=== PATIENT | male | born 1960 | race Hispanic/Latino ===

== ENCOUNTER → 2020-09-24 | Outpatient (CLI) | payer OTHER | END | disposition home or self-care (01) | LOC: RAH 08:34 | PROVIDERS: ATTEND Internal Medicine | DX: I08.8 Other rheumatic multiple valve diseases (principal); I10 Essential (primary) hypertension; E66.9 Obesity, unspecified; E78.5 Hyperlipidemia, unspecified; E11.9 Type 2 diabetes mellitus without complications; R55 Syncope and collapse | CPT/HCPCS: 93306; 93356 ==

== ENCOUNTER → 2020-10-08 | Outpatient (CLI) | payer OTHER ==
[~2020-10-08] MED LIST: REGADENOSON 0.4 MG/5 ML PF SYG IVP SCH
== END | disposition home or self-care (01) ==
LOC: RAH 10:06
PROVIDERS: ATTEND Internal Medicine
DX: R07.9 Chest pain, unspecified (principal)
CPT/HCPCS: 78452; 93017; 96374; A9500 ×2; J2785

== ENCOUNTER → 2020-10-31 | Outpatient (CLI) | payer OTHER | END | disposition home or self-care (01) | LOC: RAH 08:58 | PROVIDERS: ATTEND Internal Medicine Gastroenterology | DX: R10.13 Epigastric pain (principal); K21.9 Gastro-esophageal reflux disease without esophagitis; Z90.3 Acquired absence of stomach [part of] | CPT/HCPCS: 74240 ==

== ENCOUNTER 2021-02-26 06:44 | Day surgery (SDC) | payer OTHER ==
[2021-02-23 12:45] LABS: BASOPHILS % (AUTO) 0.7 % (0.0-5.0); EOSINOPHILS % (AUTO) 3.1 % (0.0-8.0); LYMPHOCYTES % (AUTO) 21.5 % (21.0-51.0); MEAN CORPUSCULAR HEMOGLOBIN 24.3 pg (27.0-33.0); MEAN CORPUSCULAR HGB CONC 30.4 g/dL (32.0-36.0); MEAN CORPUSCULAR VOLUME 79.9 fL (79-99); MONOCYTES % (AUTO) 7.7 % (3.0-13.0); NEUTROPHILS % (AUTO) 66.2 % (40.0-77.0); PLATELET COUNT (AUTO) 393 K/uL (130-400); RED BLOOD CELL COUNT(AUTO) 5.76 MIL/uL (4.50-6.20); RED CELL DISTRIBUTION WIDTH 16.4 % (11.0-15.5); WHITE BLOOD COUNT (AUTO) 10.8 K/uL (4.8-10.8)
[2021-02-23 13:21] LABS: CREATININE 0.8 mg/dL (0.5-1.5); POTASSIUM 4.7 mmol/L (3.5-5.1)
[~2021-02-26] VITALS: Ht 185.4 cm; Wt 58.6 kg
[2021-02-26] VITALS (15 sets, daily range): BP systolic 112–142; BP diastolic 48–69
[~2021-02-26 06:44] MED LIST changes: +AMLO2.5T4 PO; +ASPI-449 PO; +FENO134C PO; +GLIP5TAB11 PO; +KRIL1CAP20 PO; +LISI40TA9 PO; +METF-446 PO; +MULT-1367 PO; +PRAV20TA4 PO; -REGADENOSON 0.4 MG/5 ML PF SYG IVP SCH; +SEMA1PEN3 SQ; +[UNRECOGNIZED DRUG - CODE] PO
[2021-02-26] MEDS ORDERED: 0.9%NACL 1000ML 1,000 ML IV ONE (08:18)
[2021-02-26] MEDS ORDERED: CEFAZOLIN SODIUM 1 GM VIAL ONE (08:18)
[2021-02-26] MEDS ORDERED: SUCCINYLCHOLINE 200MG/10ML SYR ONE (10:33)
[2021-02-26] MEDS ORDERED: LIDOCAINE HCL MPF 1% 5ML VIAL ONE (10:33)
[2021-02-26] MEDS ORDERED: FENTANYL CITRATE PF 50 MCG/1 ML 2ML VIAL ONE ×2 (10:34→12:04)
[2021-02-26] MEDS ORDERED: ROCURONIUM 10MG/1ML SYR 10 MG/ML ML ONE (10:34)
[2021-02-26] MEDS ORDERED: PROPOFOL 10 MG/ML 20ML VIAL IV ONE (10:34)
[2021-02-26] MEDS ORDERED: MIDAZOLAM HCL 1 MG/ML 2ML VIAL ONE (10:34)
[2021-02-26] MEDS ORDERED: CEPH500B PO (12:54)
[2021-02-26] MEDS ORDERED: IBUP-2077 PO (12:54)
[2021-02-26] MEDS ORDERED: ACET1TAB25 PO (12:54)
[2021-02-26] MEDS ORDERED: MEPERIDINE-PF 25 MG/ML SYG ONE (13:17)
[2021-02-26] MEDS ORDERED: KETOROLAC 30MG VIAL (30MG/ML) ONE (13:28)
== END 2021-02-26 14:35 | disposition home or self-care (01) ==
LOC: DAH 06:44
PROVIDERS: ATTEND Orthopaedic Surgery
DX: M23.352 Other meniscus derangements, posterior horn of lateral meniscus, left knee (principal); Z20.822 Contact with and (suspected) exposure to COVID-19; M17.12 Unilateral primary osteoarthritis, left knee; M22.42 Chondromalacia patellae, left knee; M23.611 Other spontaneous disruption of anterior cruciate ligament of right knee; I10 Essential (primary) hypertension; E11.9 Type 2 diabetes mellitus without complications; M06.9 Rheumatoid arthritis, unspecified; Z98.890 Other specified postprocedural states; Z98.84 Bariatric surgery status; Z82.49 Family history of ischemic heart disease and other diseases of the circulatory system; Z83.3 Family history of diabetes mellitus; Z82.61 Family history of arthritis; Z87.891 Personal history of nicotine dependence; Z72.89 Other problems related to lifestyle; Z79.899 Other long term (current) drug therapy
CPT/HCPCS: 29880; 36415; 80048; 82948 ×2; 85025; 87635; A4215; A4221; A4222; A4223; A4649; A4663; A4930; A6223; C9803; J0330; J0690; J1885; J2175; J2250; J2704; J3010 ×2; J3490; J7030

== ENCOUNTER 2021-10-01 07:43 | Observation (INO) | payer OTHER ==
[2021-09-29 09:49] LABS: BASOPHILS % (AUTO) 0.8 % (0.0-5.0); EOSINOPHILS % (AUTO) 4.5 % (0.0-8.0); HEMATOCRIT 48.1 % (42-54); LYMPHOCYTES % (AUTO) 24.1 % (21.0-51.0); MEAN CORPUSCULAR HGB CONC 31.2 g/dL (32.0-36.0); MEAN CORPUSCULAR VOLUME 83.4 fL (79-99); MONOCYTES % (AUTO) 8.1 % (3.0-13.0); NEUTROPHILS % (AUTO) 61.6 % (40.0-77.0); PLATELET COUNT (AUTO) 307 K/uL (130-400); RED BLOOD CELL COUNT(AUTO) 5.77 MIL/uL (4.50-6.20); RED CELL DISTRIBUTION WIDTH 12.8 % (11.0-15.5)
[2021-09-29 09:51] LABS: APPEARANCE,URINE Clear (CLEAR); BILIRUBIN,URINE Negative (NEGATIVE); COLOR,URINE Dark Yellow (YELLOW); GLUCOSE, URINE (UA) Negative (NEGATIVE); KETONES,URINE Trace mg/dL (NEGATIVE); LEUKOCYTE ESTERASE ,URINE Trace (NEGATIVE); NITRATE,URINE Negative (NEGATIVE); OCCULT BLOOD,URINE Negative (NEGATIVE); PH,URINE 5.5 (5.0-8.0); PROTEIN,URINE Trace mg/dL (NEGATIVE)
[2021-09-29 09:58] LABS: CREATININE 0.9 mg/dL (0.5-1.5)
[2021-09-29 10:02] LABS: INR 1.05 (0.85-1.15); PROTHROMBIN TIME 11.4 SEC (9.6-11.6)
[2021-09-29 10:03] LABS: BACTERIA,URINE Few /HPF (None Seen); RBC,URINE None Seen /HPF (0-1); WBC,URINE 0-1 /HPF (0-1)
[2021-09-29 15:09] VITALS: BP 155/73
[~2021-10-01] VITALS: Ht 185.4 cm; Wt 125.3 kg
[2021-10-01] VITALS (26 sets, daily range): BP systolic 127–181; BP diastolic 58–94
[~2021-10-01 07:43] MED LIST changes: -AMLO2.5T4 PO; -FENO134C PO; +FENO134C21 PO; +NAPR-1023 PO; -[UNRECOGNIZED DRUG - CODE] PO
[2021-10-01] MEDS ORDERED: 0.9%NACL 1000ML 1,000 ML IV ONE (08:20)
[2021-10-01] MEDS ORDERED: CEFAZOLIN SODIUM 1 GM VIAL ONE ×4 (10:26→11:09)
[2021-10-01] MEDS ORDERED: TRANEXAMIC ACID 1000MG/10ML ONE ×2 (10:32→14:02)
[2021-10-01] MEDS ORDERED: ROPIVACAINE 0.5% 5MG/ML 30ML IJ ONE ×2 (10:34→10:35)
[2021-10-01] MEDS ORDERED: CELECOXIB 200 MG CAP ONE (10:35)
[2021-10-01] MEDS ORDERED: ACETAMINOPHEN 500 MG TABLET ONE (10:35)
[2021-10-01] MEDS ORDERED: KETOROLAC 15MG/ML VIAL (15MG/ML) ONE (10:35)
[2021-10-01] MEDS ORDERED: 0.9%NACL 10ML VIAL ONE (10:35)
[2021-10-01] MEDS ORDERED: PROPOFOL 10 MG/ML 20ML VIAL IV ONE (10:38)
[2021-10-01] MEDS ORDERED: MIDAZOLAM HCL 1 MG/ML 2ML VIAL ONE (10:38)
[2021-10-01] MEDS ORDERED: FENTANYL CITRATE PF 50 MCG/1 ML 2ML VIAL ONE ×5 (10:38→14:19)
[2021-10-01] MEDS ORDERED: ROCURONIUM 10MG/1ML SYR 10 MG/ML ML ONE ×2 (10:38→11:39)
[2021-10-01] MEDS ORDERED: SUCCINYLCHOLINE CHLORIDE 20 MG/ML 10 ML VIAL ONE (10:38)
[2021-10-01] MEDS ORDERED: LIDOCAINE PF 100MG/5ML (2%) SYRINGE 5ML ONE (10:38)
[2021-10-01] MEDS ORDERED: GLYCOPYRROLATE 1 MG/5 ML SYRINGE ONE (11:23)
[2021-10-01] MEDS ORDERED: CEFAZOLIN SODIUM 3 GM VIAL IV ONE (11:35)
[2021-10-01] MEDS ORDERED: TRANEXAMIC ACID 1000MG/10ML IV ONE (11:38)
[2021-10-01] MEDS ORDERED: EPHEDRINE SULFATE 50 MG/ML AMPULE ONE (12:41)
[2021-10-01] MEDS ORDERED: LIDOCAINE HCL-MPF 1% 2ML VIAL IV PRN (14:00)
[2021-10-01] MEDS ORDERED: POTASSIUM CHLORIDE 20MEQ/100ML 100 ML IV PRN (14:00)
[2021-10-01] MEDS ORDERED: POTASSIUM CHLORIDE 10% ELIXIR 20 MEQ/15 ML UDCUP PO PRN (14:00)
[2021-10-01] MEDS ORDERED: ONDANSETRON 4MG INJ IVP PRN (14:00)
[2021-10-01] MEDS ORDERED: OXYCODONE HCL 5 MG TAB PO PRN (14:00)
[2021-10-01] MEDS ORDERED: DiphenhydrAMINE HCL 50 MG/ML VIAL IVP PRN (14:00)
[2021-10-01] MEDS ORDERED: KCL 20 MEQ ERTAB PO PRN (14:00)
[2021-10-01] MEDS ORDERED: CALCIUM CARB 500MG PO PRN (14:00)
[2021-10-01] MEDS ORDERED: FERROUS FUMARATE 324 MG TABLET PO PRN (14:00)
[2021-10-01] MEDS: ACETAMINOPHEN 500 MG TABLET PO SCH ×2 (14:00→20:34)
[2021-10-01] MEDS ORDERED: TRAMADOL HCL 50 MG TABLET PO PRN (14:00)
[2021-10-01] MEDS ORDERED: TEMAZEPAM 15 MG CAPSULE PO PRN (14:00)
[2021-10-01] MEDS ORDERED: KETOROLAC 15MG/ML VIAL (15MG/ML) IV PRN (14:00)
[2021-10-01] MEDS: 0.9%NACL 1000ML 1,000 ML IV SCH ×2 (14:08→23:10)
[2021-10-01] MEDS: INSULIN HUMULIN R 100 UNIT/ML 3ML SQ SCH ×2 (17:00→20:34)
[2021-10-01] MEDS: METFORMIN HCL 500 MG TABLET PO SCH (17:10)
[2021-10-01] MEDS: CEFAZOLIN SODIUM 3 GM in DEXTROSE 5%-WATER 100 ML IVP SCH (18:37)
[2021-10-01] MEDS ORDERED: COMPOUND IV REFRIGERATED 1 EACH IVSOLN MISC PRN (19:00)
[2021-10-01] MEDS: GLIPIZIDE 5 MG TABLET PO SCH (20:33)
[2021-10-01] MEDS: FAMOTIDINE 20MG TAB PO SCH (20:33)
[2021-10-01] MEDS: LISINOPRIL 40 MG TABLET PO SCH (20:33)
[2021-10-01] MEDS: ASPIRIN 81 MG EC TAB PO SCH (20:33)
[2021-10-01] MEDS: CELECOXIB 200 MG CAP PO SCH (20:33)
[2021-10-01] MEDS: PREGABALIN 25 MG CAP PO SCH (20:33)
[2021-10-01] MEDS: OXYCODONE HCL 5 MG TAB PO PRN (22:30)
[2021-10-02 00:04] VITALS: BP 129/70
[2021-10-02] MEDS: CEFAZOLIN SODIUM 3 GM in DEXTROSE 5%-WATER 100 ML IVP SCH (01:59)
[2021-10-02 04:04] VITALS: BP 138/75
[2021-10-02] MEDS: ACETAMINOPHEN 500 MG TABLET PO SCH ×2 (04:41→14:27)
[2021-10-02 04:43] LABS: HEMATOCRIT 39.4 % (42-54); MEAN CORPUSCULAR HEMOGLOBIN 27.2 pg (27.0-33.0); MEAN CORPUSCULAR HGB CONC 32.2 g/dL (32.0-36.0); MEAN CORPUSCULAR VOLUME 84.4 fL (79-99); RED BLOOD CELL COUNT(AUTO) 4.67 MIL/uL (4.50-6.20); RED CELL DISTRIBUTION WIDTH 13.1 % (11.0-15.5); WHITE BLOOD COUNT (AUTO) 10.8 K/uL (4.8-10.8)
[2021-10-02 04:54] LABS: CREATININE 0.8 mg/dL (0.5-1.5); POTASSIUM 3.7 mmol/L (3.5-5.1)
[2021-10-02] MEDS: INSULIN HUMULIN R 100 UNIT/ML 3ML SQ SCH ×3 (06:02→16:58)
[2021-10-02 07:26] VITALS: BP 136/65
[2021-10-02] MEDS: METFORMIN HCL 500 MG TABLET PO SCH ×2 (08:00→16:42)
[2021-10-02] MEDS ORDERED: POLYETHYLENE GLYCOL 3350 17 GM POWD.PACK PO SCH (09:00)
[2021-10-02] MEDS ORDERED: FENOFIBRATE MICRONIZED 134 MG PO SCH (09:00)
[2021-10-02] MEDS ORDERED: ATORVASTATIN 10 MG TABLET PO SCH (09:00)
[2021-10-02] MEDS ORDERED: TAMSULOSIN HCL 0.4 MG CAP.ER.24H PO SCH (09:00)
[2021-10-02] MEDS: CELECOXIB 200 MG CAP PO SCH (09:54)
[2021-10-02] MEDS: PREGABALIN 25 MG CAP PO SCH (09:54)
[2021-10-02] MEDS: ASPIRIN 81 MG EC TAB PO SCH (09:54)
[2021-10-02] MEDS: GLIPIZIDE 5 MG TABLET PO SCH (09:55)
[2021-10-02] MEDS: LISINOPRIL 40 MG TABLET PO SCH (09:56)
[2021-10-02] MEDS: FAMOTIDINE 20MG TAB PO SCH (09:57)
[2021-10-02] MEDS: 0.9%NACL 1000ML 1,000 ML IV SCH (10:00)
[2021-10-02 11:24] VITALS: BP 158/82
[2021-10-02 16:12] VITALS: BP 154/92
[2021-10-02] MEDS: OXYCODONE HCL 5 MG TAB PO PRN (16:44)
[2021-10-02] MEDS ORDERED: HYDR-4060 PO (17:30)
[2021-10-02] MEDS ORDERED: AEC81 PO (17:30)
[2021-10-04] MEDS ORDERED: SEMAGLUTIDE 0.5 MG SQ SCH (09:00)
[2021-10-04] MEDS ORDERED: BISACODYL 10 MG SUPP.RECT RC PRN (14:00)
== END 2021-10-02 18:50 | disposition home health service (06) ==
LOC: DAH 07:43 → DAHIP 07:44 → DAH 07:44 → 4AH 15:30
PROVIDERS: ADMIT Orthopaedic Surgery; ATTEND Orthopaedic Surgery
DX: M17.12 Unilateral primary osteoarthritis, left knee (principal); Z20.822 Contact with and (suspected) exposure to COVID-19; G89.29 Other chronic pain; M25.562 Pain in left knee; I10 Essential (primary) hypertension; E11.9 Type 2 diabetes mellitus without complications; Z79.899 Other long term (current) drug therapy; Z98.890 Other specified postprocedural states; Z79.82 Long term (current) use of aspirin; Z79.84 Long term (current) use of oral hypoglycemic drugs; Z79.4 Long term (current) use of insulin
CPT/HCPCS: 27447; 36415 ×2; 64447; 76942; 80048 ×2; 81001; 82948 ×6; 85025; 85027; 85610; 87088; 87635; 87641; 96365; 96372 ×2; 96375; 96376; 97039 ×2; 97116 ×2; 97161; 97530 ×2; A4215; A4221; A4222; A4223; A4600; A4649 ×5; A4663; A9272; C1776; C9803; G0378 ×26; J0330; J0690 ×6; J1815 ×2; J1885 ×2; J2001; J2250; J2704; J2795 ×2; J3010 ×5; J3490 ×5; J7030; J7060; J7120

== ENCOUNTER 2024-01-22 03:27 | Emergency (ER) | payer OTHER ==
[~2024-01-22] VITALS: Ht 188 cm; Wt 122.0 kg
[~2024-01-22 03:27] MED LIST changes: +AEC81 PO; -ASPI-449 PO; -GLIP5TAB11 PO; +GLIP5TAB15 PO; +HYDR-4060 PO; -NAPR-1023 PO
[2024-01-22 03:43] LABS: BASOPHILS # (AUTO) 0.09 K/uL (0.00-0.20); BASOPHILS % (AUTO) 0.5 % (0.0-5.0); EOSINOPHILS # (AUTO) 0.31 K/uL (0.00-0.70); EOSINOPHILS % (AUTO) 1.7 % (0.0-8.0); HEMATOCRIT 45.3 % (42-54); IMMATURE GRANULOCYTE ABSOLUTE 0.16 K/uL (0-1); LYMPHOCYTES # (AUTO) 2.7 K/uL (1.0-4.8); LYMPHOCYTES % (AUTO) 14.5 % (21.0-51.0); MEAN CORPUSCULAR HEMOGLOBIN 27.7 pg (27.0-33.0); MEAN CORPUSCULAR HGB CONC 33.1 g/dL (32.0-36.0); MEAN CORPUSCULAR VOLUME 83.7 fL (79-99); MONOCYTES # (AUTO) 0.9 K/uL (0.1-1.0); NEUTROPHILS # (AUTO) 14.4 K/uL (1.8-7.7); NEUTROPHILS % (AUTO) 77.4 % (40.0-77.0); PLATELET COUNT (AUTO) 294 K/uL (130-400); RED BLOOD CELL COUNT(AUTO) 5.41 MIL/uL (4.50-6.20); RED CELL DISTRIBUTION WIDTH 12.9 % (11.0-15.5); WHITE BLOOD COUNT (AUTO) 18.6 K/uL (4.8-10.8)
[2024-01-22] MEDS: ONDANSETRON 4MG INJ IVP ONE (03:51)
[2024-01-22 03:53] LABS: CREATININE 0.9 mg/dL (0.5-1.3); POTASSIUM 3.9 mmol/L (3.5-5.1)
[2024-01-22 04:03] LABS: SARS-CoV-2, RNA, NAAT NEGATIVE SARS CoV-2 (NEGATIVE)
[2024-01-22 04:06] LABS: B-TYPE NATRIURETIC PEPTIDE 18 pg/mL (0-100)
[2024-01-22 04:09] LABS: INFLUENZA TYPE A Negative For Type A (NEGATIVE); INFLUENZA TYPE B Negative For Type B (NEGATIVE)
[2024-01-22 04:40] LABS: PROTHROMBIN TIME 10.8 SEC (9.6-11.6)
[2024-01-22 04:41] LABS: PARTIAL THROMBOPLASTIN TIME 26.2 SEC (26.3-35.5)
[2024-01-22] MEDS: LACTATED RINGERS IV ONE (04:41)
[2024-01-22 04:59] LABS: BILIRUBIN,DIRECT 0.1 mg/dL (0.0-0.3); BILIRUBIN,TOTAL 0.4 mg/dL (0.2-1.0); TOTAL PROTEIN, SERUM 7.8 g/dL (6.0-8.3)
[2024-01-22 05:08] LABS: APPEARANCE,URINE CLEAR (CLEAR); BILIRUBIN,URINE NEGATIVE (NEGATIVE); COLOR,URINE YELLOW (YELLOW); GLUCOSE, URINE (UA) 500 mg/dL (NEGATIVE); KETONES,URINE 5 mg/dL (NEGATIVE); LEUKOCYTE ESTERASE ,URINE NEGATIVE Leu/uL (NEGATIVE); NITRATE,URINE NEGATIVE (NEGATIVE); OCCULT BLOOD,URINE NEGATIVE (NEGATIVE); PH,URINE 5.5 (5.0-8.0); PROTEIN,URINE 50 mg/dL (NEGATIVE)
[2024-01-22 05:16] LABS: ADD UA MICROSCOPIC YES
[2024-01-22 05:18] LABS: BACTERIA,URINE FEW /HPF (None Seen); CALCIUM OXALATE CRYSTALS,UR MOD /LPF (None Seen); MUCUS,URINE RARE LPF (None Seen); SQUAMOUS EPITHELIAL CELL,UR RARE /HPF (0-2)
[2024-01-22] MEDS ORDERED: ONDA-243 PO (05:47)
[2024-01-22 06:02] VITALS: BP 132/70; PULSE 61; RESP 18; O2SAT 96
== END 2024-01-22 06:11 | disposition home or self-care (01) ==
LOC: EDH 03:27
DX: K52.9 Noninfective gastroenteritis and colitis, unspecified (principal); Z20.822 Contact with and (suspected) exposure to COVID-19; E11.9 Type 2 diabetes mellitus without complications; E78.00 Pure hypercholesterolemia, unspecified; I10 Essential (primary) hypertension; Z98.84 Bariatric surgery status; Z79.899 Other long term (current) drug therapy; Z79.84 Long term (current) use of oral hypoglycemic drugs
CPT/HCPCS: 99285; 96374; 71045; 87635; 82550; 80076; 84484 ×2; 80048; 83880; 83690; 85025; 85610; 85730; 87040; 87804 ×2; 83605; 81001; 36415; 93005; 84145; J7120; J2405

== ENCOUNTER 2024-02-10 22:22 | Emergency (ER) | payer OTHER ==
[~2024-02-10] VITALS: Ht 185.4 cm; Wt 121.1 kg
[~2024-02-10 22:22] MED LIST changes: +ONDA-243 PO
[2024-02-10 22:55] VITALS: BP 174/78; PULSE 88; RESP 16; TEMP 98.1; O2SAT 97
[2024-02-10] MEDS: acetaMINOPHEN 500 MG TABLET PO ONE (23:04)
[2024-02-10] MEDS: acetaMINOPHEN 500 MG TABLET ONE (23:10)
[2024-02-11] MEDS: ketOROlac 15MG/ML VIAL (15MG/ML) IV ONE (00:04)
[2024-02-11] MEDS ORDERED: ACET500P24 PO (00:04)
== END 2024-02-11 00:17 | disposition home or self-care (01) ==
LOC: EDH 22:22
DX: S00.03XA Contusion of scalp, initial encounter (principal); H11.32 Conjunctival hemorrhage, left eye; E11.9 Type 2 diabetes mellitus without complications; E78.00 Pure hypercholesterolemia, unspecified; I10 Essential (primary) hypertension; Z79.84 Long term (current) use of oral hypoglycemic drugs; Z79.899 Other long term (current) drug therapy; W18.39XA Other fall on same level, initial encounter; Y93.89 Activity, other specified; Y92.89 Other specified places as the place of occurrence of the external cause; Y99.8 Other external cause status
CPT/HCPCS: 99285; 70450; 73060; 73030; 72125; 96374; J1885

== ENCOUNTER → 2024-08-23 | Outpatient (CLI) | payer OTHER ==
[~2024-08-23] MED LIST changes: +ACET500P24 PO
--- NOTE | 2024-08-23 19:05 | HMCSR ---
APPROVED REPORT EXAM: Two-dimensional and M-mode echocardiogram with Doppler and color Doppler. INDICATION ICD: R60.0 Localized edema 2D Dimensions RVDd4.5 cmLVEF(%)62.2 (>50%)LVEF(%, simp.)64 % IVSd1.1 (0.7-1.1cm)FS(%)34 %LA ESV INDEX (BP)30.42 mL/m2 LVDd5.2 (3.8-5.6cm)LA (2D)5.2 (1.6-4.0cm) PWd1.3 (0.7-1.1cm)Ao Root(2D)3.5 (2.0-3.7cm) IVSs1.6 cmLVOT diam2.3 (1.8-2.4cm) LVDs3.4 (2.5-4.0cm) PWs1.8 cm M-Mode Dimensions EPSS0.7 cm LA (MM)5.6 (1.6-4.0cm) Ao Root(MM)3.6 (2.0-3.7cm) Aortic Valve AoV Vmax1.6 m/Rayna Peak GR9.7 mmHgLVOT Vmax1.4 m/s AoV VTI0.3 mAo Mean GR5.8 mmHgLVOT VTI0.30 m YONG (VMAX)3.7 cm2AVA (VTI) 3.7 cm2 Mitral Valve MV E Gval967.8 cm/sDECEL Crpg079 ms MV A Exix881.7 cm/sP 1/2 T83 ms E/A ratio1.0MVA (PHT)2.7 cm2 TDI E/E' Nejuhk80.0E/E' Pocnrrv73.5 Medial E' Peak V6.00 cm/sLateral E' Peak V8.00 cm/s Pulmonary Valve PV Vmax1.2 m/s Tricuspid Valve TR Vmax2.4 m/sRAP (EST) 8 rjMnVKKB64.6 mmHg TR Peak GR23.6 mmHg Left Ventricle The left ventricle is normal size. There is normal LV segmental wall motion. There is normal left alexandrea tricular wall thickness. The LVEF is > 55%. The left ventricular diastolic function is normal. Right Ventricle The right ventricle is normal size. The right ventricular systolic function is normal. Atria The left atrium size is normal. The right atrium size is normal. Aortic Valve The aortic valve is normal in structure. Trivial aortic regurgitation is present. There is no aortic valvular stenosis. Mitral Valve Posterior annular calcification noted. The mitral valve is mildly thickened but open well. There is t race of mitral valve regurgitation noted. There is no mitral valve stenosis. Tricuspid Valve The tricuspid valve is normal in structure. There is no tricuspid valve regurgitation noted. Pulmonic Valve Pulmonic valve is not well visualized. There is trace pulmonic valvular regurgitation. Great Vessels The aortic root is normal in size. IVC is not well visualized. Pericardium There is no pericardial effusion. Other Information Quality : Adequate Conclusion The left ventricle is normal size. The LVEF is > 55% with normal LV segmental wall motion. The left ventricular diastolic function is normal. The right ventricular systolic function is normal. Both atria are normal in size. No hemodynamically significant valvular abnormalities. There is no pericardial effusion.
== END | disposition home or self-care (01) ==
LOC: RAH 13:53
PROVIDERS: ATTEND Internal Medicine
DX: I08.0 Rheumatic disorders of both mitral and aortic valves (principal); R60.0 Localized edema
CPT/HCPCS: 93306